=== PATIENT | female | born 1955 | race Caucasian/White ===

== ENCOUNTER → 2019-06-09 10:23 | Outpatient (CLI) | payer BC, MEDICARE, SELFPAY ==
--- NOTE | ~2019-06-09 | MM_ITS ---
EXAMINATION: MM screening jacky BI w negar HISTORY: Screening mammogram TECHNIQUE: Craniocaudal and mediolateral oblique 3-D tomosynthesis images were obtained and synthetic 2-D images were generated. CAD analysis was submitted and interpreted. COMPARISON: 09/10/2017, 06/07/2016, 05/15/2015 bilateral digital screening mammogram examinations BREAST PARENCHYMAL COMPOSITION: There are scattered areas of fibroglandular density. FINDINGS: There is no evidence of suspicious mass, calcification, or architectural distortion to sugg est malignancy in either breast. There has been no suspicious interval change. IMPRESSION: 1. No mammographic evidence of malignancy. 2. Recommend routine screening mammography in one year. BI-RADS Category 1: Negative Reviewed, dictated and finalized at location A. [facility]
--- NOTE | ~2019-06-09 | DEXA_ITS ---
Bone Density Report Name: Ana Vital Age: 64 Sex: Female Ethnicity: White Date of : 1955 Indication: osteopenia; height loss; hysterectomy; postmenopausal Referring Provider: VIPUL, AUSTYN Painting Study: Bone densitometry was performed. Exam Date: June 09, 2019 Accession number: [id number] Bone Density: Region BMD T-score Z-score Classification AP Spine (L1-L4) 0.895 -1.4 0.5 Osteopenia Femoral Neck (Left) 0.717 -1.2 0.4 Osteopenia Total Hip (Left) 0.903 -0.3 1.0 Normal Femoral Neck (Right) 0.766 -0.7 0.8 Normal Total Hip (Right) 0.951 0.1 1.4 Normal Total Hip Mean 0.927 -0.1 1.2 Normal World Health Organization criteria for BMD impression classify patients as: Normal (T-score at or above -1.0), Osteopenia (T-score between -1.0 and -2.5), or Osteoporosis (T-score at or below -2.5). 10-year Fracture Risk(1): Major Osteoporotic Fracture 7.4% Hip Fracture 0.6% Reported Risk Factors: [place] (), Neck BMD=0.717, BMI=43.0 (1) FRAX(R) Version 3.08. Fracture probability calculated for an untreated patient. Fracture probability may be lower if the patient has received treatment. Previous Exams: Region Exam Age BMD T-score BMD Change BMD Change Date g/cm2 vs Baseline vs Previous AP Spine(L1-L4) 06/09/2019 64 0.895 -1.4 -0.061* -0.031* 06/07/2016 61 0.926 -1.1 -0.031* -0.017 08/15/2009 54 0.943 -0.9 -0.013 0.015 07/25/2008 53 0.928 -1.1 -0.028 -0.008 07/31/2007 52 0.937 -1.0 -0.020 -0.020 06/06/2004 49 0.957 -0.8 Total Hip(Left) 06/09/2019 64 0.903 -0.3 0.015 -0.027 06/07/2016 61 0.930 -0.1 0.042 0.022 08/15/2009 54 0.908 -0.3 0.020 0.043* 07/25/2008 53 0.865 -0.6 -0.023 -0.039* 07/31/2007 52 0.904 -0.3 0.016 -0.080 06/06/2004 49 0.984 0.3 0.096 0.096 04/22/2002 47 0.888 -0.4 Total Hip(Right) 06/09/2019 64 0.951 0.1 0.005 0.013 06/07/2016 61 0.938 0.0 -0.008 0.037 08/15/2009 54 0.901 -0.3 -0.045 0.015 07/25/2008 53 0.886 -0.5 -0.060 -0.039* 07/31/2007 52 0.924 -0.1 -0.021 -0.067 06/06/2004 49 0.991 0.4 0.045 0.045 04/22/2002 47 0.946 0.0 *Denotes significance at 95% confidence level, [facility] [place] 0.022 g/cm2, LSC for To
== END ==
PROVIDERS: Referring Provider Obstetrics & Gynecology; Visit Provider Physician Assistant
DX: Z12.31 Encounter for screening mammogram for malignant neoplasm of breast (principal); Z78.0 Asymptomatic menopausal state; M85.88 Other specified disorders of bone density and structure, other site; M85.852 Other specified disorders of bone density and structure, left thigh
CPT/HCPCS: 77063; 77067; 77080

== ENCOUNTER 2023-07-28 17:54 | Emergency (ER) | payer MEDICARE, OTHER, SELFPAY ==
[2023-07-28 18:05] VITALS: BP 129/57; PULSE 61; RESP 18; TEMP 36.6; O2SAT 97
--- NOTE | 2023-07-28 18:05 | ED.URI ---
HPI - URI/Sore Throat General Chief Complaint: Upper Respiratory Infection Stated Complaint: Strep Symptoms Time Seen by Provider: 07/28/23 18:13 Source: patient, RN notes reviewed and old records reviewed Mode of arrival: ambulatory Limitations: no limitations History of Present Illness HPI Narrative: 68-year-old female presents to the [facility] with complaints of a sinus congestion, cough, sore throat since Friday, 2 days. Has taken Coricidin Denies any fevers. Has not measured it. Denies fatigue or chills. Denies ear pain Related Data Allergies Allergy/AdvReac Type Severity Reaction Status Date / Time No Known Allergies Allergy Verified 07/28/23 18:22 Review of Systems Review of Systems: All systems reviewed & are unremarkable except as noted in HPI and below Constitutional: Constitutional: Reports no additional constitutional complaints Eyes: Eyes: Reports no additional eye complaints ENT: Reports as per HPI, Reports nasal congestion and Reports sore throat Cardiovascular: Cardiovascular: Reports no additional cardiovascular complaints, Denies chest pain and Denies dyspnea Respiratory: Respiratory: Reports as per HPI, Denies chest congestion, Reports cough and Denies dyspnea Gastrointestinal: Gastrointestinal: Reports no additional gastrointestinal complaints, Denies abdominal pain, Denies nausea and Denies vomiting Musculoskeletal: Musculoskeletal: Reports no additional musculoskeletal complaints Integumentary/Breasts: Skin/Breast: Reports system reviewed and no additional complaints, except as docu Neurologic: Reports system reviewed and no additional complaints, except as documented Psychiatric: Psychiatric: Reports no additional psychiatric complaints Allergic/Immunologic: Allergic/Immunologic: Reports no additional allergic/immunologic complaints PMFSH Past Medical History Medical History (Updated 07/28/23 @ 18:52 by Dinorah Kwan APRN) Cholecystectomy planned Essential hypertension Fatty liver Hyperlipidemia Morbid obesity Pacemaker Family History Family History Mother Hypertension Family history of coronary artery disease Family history of throat cancer Pacemaker Father Family history of malignant melanoma Family history of coronary artery disease Sibling COVID-19 Other Cerebrovascular accident Diabetes mellitus Family history of cardiovascular disease Family history of kidney disease Family history of malignant neoplasm Social History Social History Smoking status: Never smoker Second hand tobacco smoke exposure: Yes Alcohol intake: current Substance use: never Substance use type: does not use Lack of Transportation: No Lack of Food: Never True Current Housing: I Have Housing Concerned About Future Housing: No Difficulty Paying Gas/Electric Bills: No Difficulty Paying for Meds: No Currently Unemployed: No Education: High School Diploma/GED Difficulty w/ Childcare or Family Care: No Living arrangements: with family Occupation/Education: retired 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 There is no relevant family history pertinent to the patient complaint. Exam Const: General: cooperative, healthy appearing, comfortable, no acute distress, well developed, alert and well nourished Nutritional Appearance: well nourished and obese Orientation/consciousness: patient oriented x3 Limitations: no limitations HENMT: Head: normal to inspection Ears: hearing grossly normal bilaterally, external ears normal, TM's normal bilaterall
== END 2023-07-28 18:42 | disposition home or self-care (01) ==
PROVIDERS: Emergency Provider Nurse Practitioner; PCP Family Medicine
DX: U07.1 COVID-19 (principal); I10 Essential (primary) hypertension; K76.0 Fatty (change of) liver, not elsewhere classified; E03.9 Hypothyroidism, unspecified; E66.01 Morbid (severe) obesity due to excess calories; Z68.41 Body mass index [BMI] 40.0-44.9, adult; Z95.0 Presence of cardiac pacemaker
CPT/HCPCS: 87081; 87426; 87804; 87880; 99213; G0463

== ENCOUNTER 2024-03-08 11:02 | Outpatient (CLI) | payer MEDICARE, OTHER, SELFPAY ==
--- NOTE | ~2024-03-08 | US_ITS ---
EXAMINATION: US thyroid DATE: 03/08/2024 11:23 INDICATION: Nontoxic single thyroid nodule. TECHNIQUE: Multiple ultrasound images of the thyroid were obtained. COMPARISON: None. FINDINGS: The right thyroid lobe measures 3.6 x 1.4 x 1.4 cm. The left thyroid lobe measures 3.7 x 1.2 x 1.3 c m. There is normal echotexture and echogenicity throughout the thyroid gland. No discrete nodules id entified. Normal vascular flow is present. IMPRESSION: 1. Normal thyroid. Reviewed, dictated and finalized at location A. [facility] IMPRESSION: 1. Normal thyroid.
== END 2024-03-08 11:03 | disposition home or self-care (01) ==
LOC: MICIMG 11:04
PROVIDERS: PCP Family Medicine; Visit Provider Otolaryngology
DX: E04.1 Nontoxic single thyroid nodule (principal)
CPT/HCPCS: 76536

== ENCOUNTER 2024-06-23 10:30 | Outpatient (CLI) | payer MEDICARE, OTHER, SELFPAY ==
--- NOTE | ~2024-06-23 | MM_ITS ---
EXAMINATION: MM screening jacky BI w negar HISTORY: Screening mammogram TECHNIQUE: Craniocaudal and mediolateral oblique 3-D tomosynthesis images were obtained and synthetic 2-D images were generated. CAD analysis was submitted and interpreted. COMPARISON: 06/09/2019, 09/10/2017 BREAST PARENCHYMAL COMPOSITION:Not Dense. There are scattered areas of fibroglandular density. FINDINGS: No suspicious mass, calcification, or architectural distortion are identified in either dejon ast to suggest malignancy. There has been no suspicious interval change. IMPRESSION: No mammographic evidence of malignancy. Recommend routine screening mammography in one year. BI-RADS Category 1: Negative Reviewed, dictated and finalized at location . [employer]
== END 2024-06-23 10:31 | disposition home or self-care (01) ==
PROVIDERS: PCP Family Medicine; Visit Provider Obstetrics & Gynecology
DX: Z12.31 Encounter for screening mammogram for malignant neoplasm of breast (principal)
CPT/HCPCS: 77063; 77067

== ENCOUNTER 2024-09-14 11:01 | Outpatient (CLI) | payer MEDICARE, OTHER, SELFPAY ==
--- NOTE | ~2024-09-14 | DEXA_ITS ---
Bone Density Report Name: BRIANDA AIKEN Age: 69 Sex: Female Ethnicity: White Date of : 1955 Indication: osteopenia; height loss; hysterectomy; Referring Provider: ROGERIO ELDER Study: Bone densitometry was performed. Exam Date: September 14, 2024 Accession number: [id number] Bone Density: Region BMD T-score Z-score Classification AP Spine(L1-L4) 0.837 -1.9 0.3 Osteopenia Femoral Neck (Left) 0.642 -1.9 0.0 Osteopenia Total Hip (Left) 0.920 -0.2 1.4 Normal Femoral Neck (Right) 0.610 -2.2 -0.3 Osteopenia Total Hip (Right) 0.955 0.1 1.7 Normal Total Hip Mean 0.938 -0.1 1.6 Normal World Health Organization criteria for BMD impression classify patients as: Normal (T-score at or above -1.0), Osteopenia (T-score between -1.0 and -2.5), or Osteoporosis (T-score at or below -2.5). 10-year Fracture Risk(1): Major Osteoporotic Fracture 11% Hip Fracture 2.2% Reported Risk Factors: [place] (), Neck BMD=0.610, BMI=43.8 (1) FRAX(R) Version 3.08. Fracture probability calculated for an untreated patient. Fracture probability may be lower if the patient has received treatment. Previous Exams: -- Region Exam Age BMD T-score BMD Change BMD Change Date g/cm2 vs Baseline vs Previous -- AP Spine (L1-L4) 09/14/2024 69 0.837 -1.9 -12.5%* -6.5%* 06/09/2019 64 0.895 -1.4 -6.4%* -3.3%* 06/07/2016 61 0.926 -1.1 -3.2%* -1.8%# 08/15/2009 54 0.943 -0.9 -1.4%# 1.6% 07/25/2008 53 0.928 -1.1 -3.0%# -0.9% 07/31/2007 52 0.937 -1.0 -2.1%# -2.1%# 06/06/2004 49 0.957 -0.8 Total Hip(Left) 09/14/2024 69 0.920 -0.2 3.5%# 1.8% 06/09/2019 64 0.903 -0.3 1.7%# -2.9% 06/07/2016 61 0.930 -0.1 4.7%# 2.5%# 08/15/2009 54 0.908 -0.3 2.2%# 5.0%* 07/25/2008 53 0.865 -0.6 -2.6%# -4.3%* 07/31/2007 52 0.904 -0.3 1.8%# -8.1%# 06/06/2004 49 0.984 0.3 10.8%# 10.8%# 04/22/2002 47 0.888 -0.4 Total Hip(Right) 09/14/2024 69 0.955 0.1 1.0%# 0.5% 06/09/2019 64 0.951 0.1 0.5%# 1.4% 06/07/2016 61 0.938 0.0 -0.9%# 4.1%# 08/15/2009 54 0.901 -0.3 -4.7%# 1.7% 07/25/2008 53 0.886 -0.5 -6.4%# -4.2%* 07/31/2007 52 0.924 -0.1 -2.3%# -6.7%# 06/06/2004 49 0.991 0.4 4.8%# 4.8%# 04/22/2002 47 0.946 0.0 -- *Denotes significance at 95% confidence level, LSC for AP Spine = 0.022 g/cm2, LSC for Total Hip = 0.027 g/cm2 # Denotes dissimilar scan types or analysis methods Clinical Information Provided by Patient: Has used the following medications: HRT (i.e. estrogen/hormone therapy), Vitamin D, Calcium Has the following medical conditions: Hysterectomy Patient maximum height was 60.0 Menopause Age: 45 No regular weight bearing exercise Onset of menses at age 11 Number of children 2 Impression: The patient has low bone mass, based on the Right Femoral Neck T-score. The patient has an estimated ten-year risk of hip fracture of 2.2% and an estimated ten-year risk of major fracture of 11%, based on the WHO FRAX algorithm. The BMD for the AP Spine (L1-L4) decreased, changing by -6.5% since the last DXA exam. Discussion: BONE DENSITY IS LOW AT ONE OR MORE SKELETAL SITES. This patient's lowest T-score is low at one or more skeletal sites. It meets the World Health Organization's (WHO) criteria for ?low bone mass? (T-score between -1.0 and -2.5). The patient's 10-year risk of fracture as calculated by FRAX is less than the threshold where pharmacological therapy is recommended by the National Osteoporosis Foundation (NOF). However, all treatment decisions require clinical judgment and consideration of individual patient factors, including patient preferences, comorbidities, previous drug use, risk factors not captured in the FRAX model (e.g., frailty, falls, vitamin D deficiency, increased bone turnover, interval significant decline in bone density) and possible under or overestimation of fracture risk by FRAX. The patient should follow a healthful lifestyle (good nutrition with adequate calcium and vitamin D, and appropriate weight-bearing exercise). Follow-Up: Consider repeating this study in 2 years to reassess this patient's status, or sooner if there is some new clinical indication. Reported by: FAMILIA on 09/15/2024 8:10:00 AM. Reviewed, dictated and finalized at location [facility]. [facility]
== END 2024-09-14 11:02 | disposition home or self-care (01) ==
LOC: MICIMG 11:02
PROVIDERS: PCP Family Medicine; Visit Provider Obstetrics & Gynecology
DX: M85.89 Other specified disorders of bone density and structure, multiple sites (principal); N95.0 Postmenopausal bleeding
CPT/HCPCS: 77080